=== PATIENT | female | born 1975 | race Two or more races ===

== ENCOUNTER 2017-11-15 07:36 | Outpatient (CLI) | payer OTHER | END 2017-11-15 07:40 | disposition home or self-care (01) | LOC: SONOGRAMA 07:36 | DX: E04.1 Nontoxic single thyroid nodule (principal) ==

== ENCOUNTER 2020-05-22 13:19 | Emergency (ER) | payer OTHER ==
[~2020-05-22] VITALS: Ht 157.5 cm; Wt 83.9 kg
[2020-05-22] MEDS ORDERED: ACETAMINOPHEN650 M2 PO (17:20)
[2020-05-22] MEDS ORDERED: VITAMIN C WIT1000 MG PO (17:20)
[2020-07-16] MEDS ORDERED: VITAMIN C500 MG (15:45)
== END 2020-05-22 17:26 | disposition home or self-care (01) ==
LOC: ER 13:19
DX: B34.9 Viral infection, unspecified (principal)